=== PATIENT | male | born 2000 | race Caucasian/White ===

== ENCOUNTER 2023-06-18 16:07 | Emergency (ER) | payer BC, SELFPAY ==
[2023-06-18 16:12] VITALS: BP 116/73; PULSE 73; RESP 16; TEMP 36.8; O2SAT 100
[2023-06-18] MEDS: LACTATED RINGERS 1,000 ML 999 ML IV CONT (17:20)
[2023-06-18] MEDS: diphenhydrAMINE HCl INJ 50 MG/ML VIAL IV PUSH (17:21)
[2023-06-18] MEDS: KETOROLAC 15 MG/ML VIAL (*BKC) IV PUSH (17:22)
[2023-06-18] MEDS: PROCHLORPERAZINE EDISYLATE 10 MG/2 ML VIAL IV PUSH (17:24)
--- NOTE | 2023-06-18 17:30 | ED.GENADULT ---
HPI - General Adult General Chief complaint: Headache Stated complaint: headache, vomiting Time Seen by Provider: 06/18/23 16:48 History of Present Illness HPI narrative: 22-year-old male with history of occasional headache presented the emergency department for evaluation of headache with associated nausea vomiting and photophobia. Patient reports few hours ago he was sitting at his computer when he had onset of right-sided visual change that lasted approximately 30 minutes. Patient states after the visual change he developed a headache. Patient reports he has no diagnosed history of migraines but does have an intermittent history of headache. Patient denies any fevers or neck pain with this. Patient was playing on his computer when the headache started Related Data Allergies Allergy/AdvReac Type Severity Reaction Status Date / Time No Known Allergies Allergy Verified 06/18/23 16:30 Review of Systems Review of Systems: All systems reviewed & are unremarkable except as noted in HPI and below Exam Narrative: APPEARANCE: Well appearing, no pain, no distress, well-nourished. HEAD: normocephalic, atraumatic. EYES: PERRLA/EOMI, conjunctivae clear. NOSE: Normal no drainage EARS:TMS clear with good light reflex. Normal visual suh with no deficit THROAT: Pharynx clear, no exudate. NECK: Supple. No adenopathy, no masses. RESPIRATORY: Airway patent, respirations nonlabored. Clear to auscultation bilaterally, no rales, rhonchi, wheezing. CARDIOVASCULAR: Regular rate and rhythm without murmurs rubs or gallops. ABDOMINAL: Soft, nontender, nondistended, normal bowel sounds MUSCULOSKELETAL: Moves all extremities. Strength/ROM intact, No edema, No calf tenderness. NEURO: Alert. Cranial nerves II through XII intact. Grossly intact SKIN: Warm, dry. Normal Color Course Course Emergency Course: 22-year-old male presented the emergency department for what appears to be a migraine headache. Patient was treated with IV Toradol, IV Benadryl and IV Compazine along with 1 L of IV fluids. Patient and family were updated on the plan for treatment. All questions and concerns were addressed. On reevaluation patient does feel improved. Patient states his headache is almost completely resolved. Patient and family were updated on the plan for discharge and close follow-up. They are educated on reasons to have follow-up with the primary care physician and the possibility needing follow-up with neurology. They are also educated on ways to control migraines at home. All question concerns were addressed and patient was well-appearing at time of discharge. Vital Signs Vital signs: Vital Signs Temperature 98.3 F 06/18/23 16:12 Pulse Rate 73 06/18/23 16:12 Respiratory Rate 16 06/18/23 16:12 Blood Pressure 116/73 06/18/23 16:12 Pulse Oximetry 100 06/18/23 16:12 Oxygen Delivery Room Air 06/18/23 16:12 Temperature 98.3 F 06/18/23 16:12 Pulse Rate 92 06/18/23 19:21 Respiratory Rate 16 06/18/23 19:21 Blood Pressure 110/65 06/18/23 19:21 Pulse Oximetry 100 06/18/23 19:21 Oxygen Delivery Room Air 06/18/23 16:12 Medical Decision Making Differential Diagnosis Differential Diagnosis: Headache, migraine, dehydration Vital Signs Vital Signs: Vital Signs Temperature 98.3 F 06/18/23 16:12 Pulse Rate 73 06/18/23 16:12 Respiratory Rate 16 06/18/23 16:12 Blood Pressure 116/73 06/18/23 16:12 Pulse Oximetry 100 06/18/23 16:12 Oxygen Delivery Room Air 06/18/23 16:12 Temperature 98.3 F 06/18/23 16:12 Pulse Rate 92 06/18/23 19:21 Respiratory Rate 16 06/18/23 19:21 Blood Pressure 110/65 06/18/23 19:21 Pulse Oximetry 100 06/18/23 19:21 Oxygen Delivery Room Air 06/18/23 16:12 Discharge Plan Discharge Clinical Impression: Migraine Patient Disposition: Home, Self-Care Condition: Stable Instructions: Antibiotic Form, Migraine Headache (ED) Adán
[2023-06-18 18:02] VITALS: BP 132/77; PULSE 85; RESP 18; O2SAT 100
[2023-06-18 19:21] VITALS: BP 110/65; PULSE 92; RESP 16; O2SAT 100
== END 2023-06-18 19:23 | disposition home or self-care (01) ==
PROVIDERS: Emergency Provider Emergency Medicine
DX: G43.909 Migraine, unspecified, not intractable, without status migrainosus (principal)
CPT/HCPCS: 96361; 96374; 96375; 99284; J0780; J1200; J1885; J7120